=== PATIENT | female | born 1985 | race Caucasian/White ===

== ENCOUNTER 2018-12-05 10:45 | Emergency (ER) | payer MEDICAID ==
[2018-12-05] MEDS: DEXAMETHASONE 10 MG/ML 1 ML INJ IM (11:47)
[2018-12-05] MEDS: KETOROLAC 30 MG INJ IM (11:55)
[2018-12-05 11:59] LABS: URINE BLOOD (Dip) POC 1+ (NEGATIVE); URINE GLUCOSE (Dip) POC Negative (NEGATIVE); URINE KETONES (Dip) POC Negative (NEGATIVE); URINE LEUKOCYTE EST (Dip) POC Negative (NEGATIVE); URINE NITRITE (Dip) POC Negative (NEGATIVE); URINE TOTAL PROTEIN POC Negative (NEGATIVE)
[2018-12-05 11:59] LABS: URINE PH (Dip) POC 5.5 (5.0-8.5)
== END 2018-12-05 12:35 | disposition home or self-care (01) ==
LOC: FTE 10:45
DX: M54.41 Lumbago with sciatica, right side (principal)
CPT/HCPCS: 81003; 81025; 96372; 99284-25